=== PATIENT | female | born 1970 | race Caucasian/White ===

== ENCOUNTER 2022-04-16 10:13 | Outpatient (CLI) | payer OTHER, SELFPAY ==
[2022-04-16 14:20] LABS: Chloride* 102 mmol/L (96-114)
[2022-04-16 14:21] LABS: Potassium* 4.5 mmol/L (3.6-5.1); Sodium* 139 mmol/L (135-149)
[2022-04-16 14:23] LABS: Blood Urea Nitrogen* 15 mg/dL (7-30); Carbon Dioxide* 26 mmol/L (20-32); Cholesterol* 248 mg/dL (90-199); Creatinine* 0.7 mg/dL (0.5-1.5); Estimated Glomerular Filt Rate 105 ml/min
[2022-04-16 14:24] LABS: Calcium* 9.7 mg/dL (8.4-10.6); Glucose* 90 mg/dL (60-115); HDL Cholesterol* 75 mg/dL (>=50); LDL Cholesterol Calculated 130 mg/dL (<100); Triglycerides* 216 mg/dL (40-149)
== END 2022-04-16 10:14 | disposition home or self-care (01) ==
PROVIDERS: Visit Provider Nurse Practitioner Family
DX: I10 Essential (primary) hypertension (principal); Z13.6 Encounter for screening for cardiovascular disorders
CPT/HCPCS: 80048; 80061

== ENCOUNTER 2022-07-07 10:06 | Outpatient (CLI) | payer OTHER, SELFPAY ==
--- NOTE | 2022-07-07 10:15 | CRLHL7_ITS ---
For Patients: As a result of the Cures Act, medical imaging exams and procedure reports are released immediately into your electronic medical record. You may view this report before your referring provider. If you have questions, please contact your health care provider. BILATERAL SCREENING MAMMOGRAM WITH COMPUTER-AIDED DETECTION AND TOMOSYNTHESIS TECHNIQUE: CC and MLO views were obtained. These mammographic images have been obtained using full-field digital technique. These mammographic images were interpreted with the benefit of computer-aided detection. Breast Tomosynthesis was used in this interpretation. COMPARISON FILM: 04/15/21, 03/26/20, 03/24/19 FINDINGS: There are scattered areas of fibroglandular density. IMPRESSION: There is no radiographic evidence for malignancy. ASSESSMENT: BI-RADS Category 1: Negative RECOMMENDATION: Routine screening mammogram in 1 year. A lay language report of this examination will be provided to the patient. Vikram May M.D. Diagnostic Radiologist [email or web address] Transcribed: 12:42 p.m. PT/Dictated by: Vikram May MD @ 07/11/2022 8:28:00 AM (Electronically Signed)
== END 2022-07-07 10:07 | disposition home or self-care (01) ==
LOC: MAMMO 10:07
PROVIDERS: PCP Nurse Practitioner Family; Visit Provider Nurse Practitioner Family
DX: Z12.31 Encounter for screening mammogram for malignant neoplasm of breast (principal)
CPT/HCPCS: 77063; 77067

== ENCOUNTER 2022-08-21 07:57 | Outpatient (CLI) | payer OTHER, SELFPAY | END 2022-08-21 07:58 | disposition home or self-care (01) | LOC: NFLDREF 18:13 | PROVIDERS: PCP Nurse Practitioner Family; Referring Provider Nurse Practitioner Family; Visit Provider Nurse Practitioner Family | DX: E78.5 Hyperlipidemia, unspecified (principal); Z51.81 Encounter for therapeutic drug level monitoring | CPT/HCPCS: 80061; 84450; 84460 ==

== ENCOUNTER 2023-05-21 10:18 | Outpatient (CLI) | payer OTHER, SELFPAY ==
--- NOTE | 2023-05-21 11:40 | W.ANESCHARGE ---
Anesthesia Charges Start Date/Time Anesthesia Start Date: 05/21/23 Anesthesia Start Time: 11:05 Stop Date/Time Anesthesia Stop Date: 05/21/23 Anesthesia Stop Time: 11:38
--- NOTE | 2023-05-21 12:32 | W.ANESCHARGE ---
Anesthesia Charges Start Date/Time Anesthesia Start Date: 05/21/23 Anesthesia Start Time: 11:05 Stop Date/Time Anesthesia Stop Date: 05/21/23 Anesthesia Stop Time: 11:38
== END 2023-05-21 10:19 | disposition home or self-care (01) ==
LOC: OP CLINIC 10:18
PROVIDERS: PCP Nurse Practitioner Family; Visit Provider Surgery
DX: Z12.11 Encounter for screening for malignant neoplasm of colon (principal); K62.1 Rectal polyp; K63.5 Polyp of colon; Z86.010 Personal history of colon polyps
CPT/HCPCS: 00811; 45385; 88305; J2704

== ENCOUNTER 2023-07-08 11:06 | Outpatient (CLI) | payer OTHER, SELFPAY ==
--- NOTE | 2023-07-08 11:30 | MM_ITS ---
Final Report Patient: GABRIELLA SHARPE Facility:?[facility] Patient ID:?[id number] Site Patient ID:?[id number]. Site :?[id number] Study:?XRay Breast Bilateral 3D W/CAD-07/08/2023 12:18:59 PM Ordering Physician:?Gabbie Combs Final Report: BILATERAL DIGITAL TOMOSYNTHESIS SCREENING MAMMOGRAM WITH COMPUTER-AIDED DETECTION CLINICAL HISTORY: Routine screening exam. COMPARISON: 07/07/2022, 04/15/2021, 04/03/2020 TECHNIQUE: Digital tomosynthesis mammogram in CC and MLO projections including computer- aided detection (CAD). BREAST COMPOSITION: Scattered fibroglandular densities. FINDINGS: RIGHT Breast: Normal breast tissue. No masses or achritectural distortion. No suspicious calcifications or adenopathy. LEFT Breast: Normal breast tissue. No masses or achritectural distortion. No suspicious calcifications or adenopathy. IMPRESSION: No suspicious findings. RECOMMENDATIONS: Annual bilateral screening mammography. BI-RADS category 1. Negative. Dictated by Vikram May MD @ 07/10/2023 10:19:36 AM (Electronic Signature)
== END 2023-07-08 11:07 | disposition home or self-care (01) ==
PROVIDERS: PCP Nurse Practitioner Family; Visit Provider Nurse Practitioner Family
DX: Z12.31 Encounter for screening mammogram for malignant neoplasm of breast (principal)
CPT/HCPCS: 77063; 77067

== ENCOUNTER 2024-02-08 07:06 | Outpatient (CLI) | payer OTHER, SELFPAY ==
--- NOTE | 2024-02-08 07:15 | CRLHL7_ITS ---
For Patients: As a result of the Century Cures Act, medical imaging exams and procedure reports are released immediately into your electronic medical record. You may view this report before your referring provider. If you have questions, please contact your health care provider. Indication: Right shoulder pain after fall with outstretched hand. Technique: Noncontrast MRI scan of the right shoulder. 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 Subacromial space: Mild inflammation of the subacromial subdeltoid bursa. Rotator cuff: Bursal sided and intrasubstance partial tear of the anterior aspect of the distal supraspinatus tendon at its greater tuberosity attachment. Tendinosis throughout the remainder of the supraspinatus tendon. Intact infraspinatus and teres minor tendons. Intact subscapularis tendon. Mild fatty atrophy of the supraspinatus and infraspinatus muscles. Biceps tendon: Intact biceps tendon. Glenoid labrum: Intact glenoid labrum. Glenohumeral joint: Small glenohumeral joint effusion. Small volume of fluid and mild synovitis within the subcoracoid recess of the subscapularis bursa. Bones: Unremarkable. No fracture or osteonecrosis. Extra-articular soft tissues: Unremarkable. Impression: 1. 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 2. Bursal sided and intrasubstance partial tear and tendinosis of the supraspinatus. 3. Small glenohumeral joint effusion and subscapularis bursitis. Dictated by Taras Mansfield MD @ 02/08/2024 2:19:56 PM (Electronically Signed)
== END 2024-02-08 07:07 | disposition home or self-care (01) ==
LOC: MRI 07:07
PROVIDERS: PCP Nurse Practitioner Family; Visit Provider Nurse Practitioner Family
DX: M25.511 Pain in right shoulder (principal); M75.101 Unspecified rotator cuff tear or rupture of right shoulder, not specified as traumatic; M25.411 Effusion, right shoulder
CPT/HCPCS: 73221

== ENCOUNTER 2024-05-17 08:08 | Outpatient (CLI) | payer OTHER, SELFPAY | END 2024-05-17 08:09 | disposition home or self-care (01) | PROVIDERS: PCP Nurse Practitioner Family; Visit Provider Nurse Practitioner Family | DX: E78.5 Hyperlipidemia, unspecified (principal); I10 Essential (primary) hypertension; Z13.0 Encounter for screening for diseases of the blood and blood-forming organs and certain disorders involving the immune mechanism | CPT/HCPCS: 80053; 80061; 85025 ==

== ENCOUNTER 2024-07-11 10:47 | Outpatient (CLI) | payer OTHER, SELFPAY | END 2024-07-11 10:48 | disposition home or self-care (01) | LOC: MAMMO 10:48 | PROVIDERS: PCP Nurse Practitioner Family; Visit Provider Nurse Practitioner Family | DX: Z12.31 Encounter for screening mammogram for malignant neoplasm of breast (principal) | CPT/HCPCS: 77063; 77067 ==

== ENCOUNTER 2025-05-22 08:20 | Outpatient (CLI) | payer OTHER, SELFPAY | END 2025-05-22 08:21 | disposition home or self-care (01) | PROVIDERS: PCP Nurse Practitioner Family; Visit Provider Nurse Practitioner Family | DX: E78.5 Hyperlipidemia, unspecified (principal); Z13.228 Encounter for screening for other metabolic disorders; Z13.0 Encounter for screening for diseases of the blood and blood-forming organs and certain disorders involving the immune mechanism | CPT/HCPCS: 80053; 80061; 85025 ==